=== PATIENT | male | born 1965 | race Caucasian/White ===

== ENCOUNTER 2021-10-13 13:41 | Emergency (ER) | payer MEDICAID ==
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
--- NOTE | 2021-10-13 14:52 | CR ---
HISTORY: Hip pain. TECHNIQUE: Frontal view of the pelvis and 2 views of the right hip. COMPARISON: None. FINDINGS: Mild narrowing of the right hip joint space with minimal osteophyte formation. Aspherical morphology of the right femoral head with bony prominence at the superior femoral head neck junction and decreased femoral head neck offset. Similar aspherical morphology of the left femoral head neck junction. Left hip joint space is maintained. No fracture. Pubic symphysis and sacroiliac joints are maintained. IMPRESSION: 1. No acute findings. 2. Bilateral femoral morphology which can be associated with cam type femoroacetabular impingement. Mild osteoarthritis of the right hip. Dictated by Mike Don MD @ 10/13/2021 2:51:43 PM (Electronically Signed)
== END 2021-10-13 16:10 | disposition home or self-care (01) ==
LOC: MW.ED 13:41
DX: M25.851 Other specified joint disorders, right hip (principal); Z88.4 Allergy status to anesthetic agent
CPT/HCPCS: 73502-26-RT; 73502-RT; 99283-25